=== PATIENT | male | born 1975 | race Caucasian/White ===

== ENCOUNTER → 2016-05-21 | Outpatient (CLI) | payer BC ==
[~2016-05-21] VITALS: Ht 170.2 cm; Wt 136.0 kg
[~2016-05-21] MED LIST: DIOVAN160 MG PO; HYDROCHLOROTHIA25 MG PO; LEVO-T75 MCG PO; MEN'S ONE DAIL1 EACH PO; MUCINEX D ER T1 EACH PO; TOPROL XL100 MG PO
== END | disposition home or self-care (01) ==
LOC: AMB 11:31
PROC: 0DBE8ZX Excision of Large Intestine, Via Natural or Artificial Opening Endoscopic, Diagnostic (ICD-10-PCS; principal; 2016-05-21)
DX: K62.89 Other specified diseases of anus and rectum (principal); K64.4 Residual hemorrhoidal skin tags; K92.1 Melena; R19.7 Diarrhea, unspecified; E78.5 Hyperlipidemia, unspecified; E66.9 Obesity, unspecified; Z68.42 Body mass index [BMI] 45.0-49.9, adult; I10 Essential (primary) hypertension; K76.0 Fatty (change of) liver, not elsewhere classified; R73.09 Other abnormal glucose; Z88.8 Allergy status to other drugs, medicaments and biological substances; Z88.7 Allergy status to serum and vaccine
CPT/HCPCS: 88305; 93005; J2250